=== PATIENT | male | born 1985 | race African-American/Black ===

== ENCOUNTER → 2018-03-06 | Emergency (ER) | payer SELFPAY ==
[~2018-03-06] VITALS: Ht 182.9 cm; Wt 90.7 kg
[2018-03-06 09:52] VITALS: BP 141/78
== END | disposition home or self-care (01) ==
LOC: ER 09:56
DX: S06.0X9A Concussion with loss of consciousness of unspecified duration, initial encounter (principal); V49.49XA Driver injured in collision with other motor vehicles in traffic accident, initial encounter; Y93.89 Activity, other specified; Y92.413 State road as the place of occurrence of the external cause; Y99.8 Other external cause status
CPT/HCPCS: 70450; 99284; A4606; Z7610